=== PATIENT | female | born 1970 | race Caucasian/White ===

== ENCOUNTER 2018-01-14 00:16 | Inpatient (IN) | payer BC ==
[~2018-01-14] VITALS: Ht 165.1 cm; Wt 80.7 kg
[2018-01-14 00:16] VITALS: BP_SYST 133
[2018-01-14] MEDS ORDERED: NACL 0.9% 1,000 ML IV ONE (00:54)
[2018-01-14 01:23] LABS: ANION GAP 8 (5-15); CALCIUM 8.7 mg/dL (8.4-11.0); CHLORIDE 99 mmol/L (98-107); GLUCOSE 110 mg/dL (70-99); SODIUM SERUM 139 mmol/L (136-145); UREA NITROGEN, BLOOD 6 mg/dL (8-21)
[2018-01-14 01:27] LABS: ALANINE AMINOTRANSFERASE 24 U/L (12-78); ALBUMIN 3.4 g/dL (3.4-4.8); ASPARTATE AMINOTRANSFERASE 20 U/L (10-37); TOTAL BILIRUBIN 0.2 mg/dL (0.0-1.0)
[2018-01-14 01:28] LABS: HEMATOCRIT 29.1 % (36-48); HEMOGLOBIN 9.2 g/dL (12.0-16.0); MEAN CORPUSCULAR HEMOGLOBIN 23 pg (27-31); MEAN CORPUSCULAR HGB CONC 32 % (32-36); MEAN CORPUSCULAR VOLUME 74 fL (79.0-98.0); PLATELET COUNT (AUTO) 326 K/uL (130-430); RED BLOOD CELL COUNT(AUTO) 3.94 MIL/uL (4.2-6.2); RED CELL DISTRIBUTION WIDTH 17.7 % (9.0-15.0); WHITE BLOOD COUNT (AUTO) 4.9 K/uL (4.8-10.8)
[2018-01-14 01:30] LABS: GFR AFRICAN AMERICAN 116 mL/min (>90)
[2018-01-14 01:31] LABS: ALCOHOL, BLOOD < 3 mg/dL (<10)
[2018-01-14 01:35] LABS: POTASSIUM 2.4 mmol/L (3.5-5.1)
[2018-01-14] MEDS ORDERED: KCL 20 mEq in 100 mL (PREMIX) 100 ML IV ONE (02:15)
[2018-01-14] MEDS ORDERED: POTASSIUM CHLORIDE 20 MEQ TAB.PRT.SR PO ONE (02:15)
[2018-01-14 02:24] LABS: BASOPHILS % (MANUAL) 0 % (0-2); EOSINOPHILS % (MANUAL) 2 % (0-7); LYMPHOCYTES % (MANUAL) 32 % (20-46); MONOCYTES % (MANUAL) 4 % (0-11)
[2018-01-14] MEDS ORDERED: DIPHENHYDRAMINE INJ 50 MG/ML VIAL IVP ONE (03:15)
[2018-01-14] MEDS ORDERED: KETOROLAC TROMETHAMINE 15 MG VIAL IVP ONE (03:15)
[2018-01-14] MEDS ORDERED: MORPHINE 2 MG/ML INJ. SYRINGE IVP ONE (03:15)
[2018-01-14] MEDS ORDERED: GABA800T PO (03:17)
[2018-01-14] MEDS ORDERED: ZOLP10TA2 PO (03:17)
[2018-01-14] MEDS ORDERED: POTA-118 PO (03:17)
[2018-01-14] MEDS ORDERED: ALPR1TAB2 PO (03:17)
[2018-01-14 03:25] LABS: BILIRUBIN,URINE NEGATIVE (NEGATIVE); BLOOD, URINE NEGATIVE (NEGATIVE); CLARITY/URINE CLEAR (CLEAR); COLOR,URINE YELLOW (YELLOW); GLUCOSE,URINE NEGATIVE (NEGATIVE); KETONES,URINE NEGATIVE (NEGATIVE); LEUKOCYTE ESTERASE ,URINE NEGATIVE (NEGATIVE); NITRITE, URINE NEGATIVE (NEGATIVE); PH,URINE 5.5 (5.0-8.0); PROTEIN URINE NEGATIVE (NEGATIVE); UROBILINOGEN,URINE 0.2 (0.2-1.0)
[2018-01-14 03:52] LABS: BARBITURATE, URINE NEGATIVE (NEG <=200); BENZODIAZEPINE, URINE NEGATIVE (NEG <=150); CANNABINOID, URINE NEGATIVE (NEG <=50); COCAINE, URINE NEGATIVE (NEG <=150); METHAMPHETAMINES SCREEN,URINE NEGATIVE (NEG <=500); OPIATE, URINE NEGATIVE (NEG <=100); PHENCYCLIDINE SCREEN,URINE NEGATIVE (NEG <=25); UR TRICYCLIC ANTIDEPRESSANTS POSITIVE (NEG <=300); URINE AMPHETAMINE NEGATIVE (NEG <=500); URINE METHADONE NEGATIVE (NEG <=200); URINE OXYCODONE SCREEN NEGATIVE (NEG <=100); URINE PROPOXYPHENE SCREEN NEGATIVE (NEG <=300)
[2018-01-14] MEDS ORDERED: LORazepam 2 MG/ML VIAL IVP PRN (04:00)
[2018-01-14 04:24] VITALS: BP_SYST 92
[2018-01-14 07:52] VITALS: BP_SYST 122
[2018-01-14] MEDS: POTASSIUM CHLORIDE 20 MEQ TAB.PRT.SR PO SCH ×5 (07:53→23:28)
[2018-01-14] MEDS: KETOROLAC TROMETHAMINE 15 MG VIAL IVP PRN (09:26)
[2018-01-14 11:30] LABS: CALCIUM 8.5 mg/dL (8.4-11.0); CREATININE 0.68 mg/dL (0.55-1.30); POTASSIUM 3.6 mmol/L (3.5-5.1)
[2018-01-14 12:57] VITALS: BP_SYST 110
[2018-01-14] MEDS: MORPHINE 4 MG/ML INJ. SYRINGE IVP PRN (13:42)
[2018-01-14 16:12] VITALS: BP_SYST 122
[2018-01-14] MEDS ORDERED: HALOPERIDOL 5 MG TABLET (HALDOL) PO ONE (17:00)
[2018-01-14] MEDS: DIPHENHYDRAMINE INJ 50 MG/ML VIAL IM PRN (17:05)
[2018-01-14 20:15] VITALS: BP_SYST 127
[2018-01-15 00:07] VITALS: BP_SYST 115
[2018-01-15 04:57] LABS: CALCIUM 8.3 mg/dL (8.4-11.0); CREATININE 0.61 mg/dL (0.55-1.30); POTASSIUM 3.9 mmol/L (3.5-5.1)
[2018-01-15 05:13] LABS: BASOPHILS % (AUTO) 0.7 % (0.0-2.0); EOSINOPHILS # (AUTO) 0.1 K/uL (0.0-0.4); EOSINOPHILS % (AUTO) 2.6 % (0.0-4.0); LYMPHOCYTES # (AUTO) 2.3 K/uL (1.0-5.5); MEAN CORPUSCULAR HEMOGLOBIN 23 pg (27-31); MEAN CORPUSCULAR HGB CONC 31 % (32-36); MEAN CORPUSCULAR VOLUME 74 fL (79.0-98.0); MONOCYTES # (AUTO) 0.4 K/uL (0.0-1.0); MONOCYTES % (AUTO) 10.1 % (1.7-9.3); NEUTROPHILS # (AUTO) 1.6 K/uL (1.8-7.7); NEUTROPHILS % (AUTO) 36.6 % (40.0-70.0); PLATELET COUNT (AUTO) 324 K/uL (130-430); RED BLOOD CELL COUNT(AUTO) 3.92 MIL/uL (4.2-6.2); RED CELL DISTRIBUTION WIDTH 17.9 % (9.0-15.0); WHITE BLOOD COUNT (AUTO) 4.4 K/uL (4.8-10.8)
[2018-01-15 08:20] VITALS: BP_SYST 115
[2018-01-15] MEDS: HALOPERIDOL 5 MG TABLET (HALDOL) PO SCH ×2 (09:52→21:25)
[2018-01-15] MEDS: DIPHENHYDRAMINE INJ 50 MG/ML VIAL IM PRN (09:52)
[2018-01-15 17:25] VITALS: BP_SYST 137
[2018-01-15] MEDS ORDERED: CYANOCOBALAMIN 1000 MCG/ML VIAL IM ONE (18:00)
[2018-01-15] MEDS ORDERED: SOD FERRIC GLUC COMPLEX/SUC 125 MG in NS 100 ML IV ONE (18:15)
[2018-01-15 19:56] VITALS: BP_SYST 122
[2018-01-15] MEDS: MORPHINE 4 MG/ML INJ. SYRINGE IVP PRN (21:57)
[2018-01-16 00:01] VITALS: BP_SYST 112
[2018-01-16 07:55] VITALS: BP_SYST 136
[2018-01-16] MEDS: HALOPERIDOL 5 MG TABLET (HALDOL) PO SCH (08:08)
[2018-01-16] MEDS ORDERED: SOD FERRIC GLUC COMPLEX/SUC 125 MG in NS 100 ML IV ONE (09:00)
[2018-01-16 11:56] VITALS: BP_SYST 137
[2018-01-16] MEDS: KETOROLAC TROMETHAMINE 15 MG VIAL IVP PRN (15:31)
[2018-01-16 15:52] VITALS: BP_SYST 123
[2018-01-16 17:33] VITALS: BP_SYST 123
== END 2018-01-16 18:30 | disposition home or self-care (01) | DRG 312 ==
LOC: SED 00:16 → STU 03:59 → SMU 01-15 14:09
PROVIDERS: ADMIT Internal Medicine; ATTEND Internal Medicine
DX: R55 Syncope and collapse (principal); F13.20 Sedative, hypnotic or anxiolytic dependence, uncomplicated; F33.2 Major depressive disorder, recurrent severe without psychotic features; F41.9 Anxiety disorder, unspecified; R27.0 Ataxia, unspecified; D50.9 Iron deficiency anemia, unspecified; S00.03XA Contusion of scalp, initial encounter; F11.10 Opioid abuse, uncomplicated; F17.200 Nicotine dependence, unspecified, uncomplicated; M79.7 Fibromyalgia; E87.6 Hypokalemia; W18.39XA Other fall on same level, initial encounter; T50.905A Adverse effect of unspecified drugs, medicaments and biological substances, initial encounter; Z88.5 Allergy status to narcotic agent; Z79.899 Other long term (current) drug therapy; Y93.89 Activity, other specified; Y99.8 Other external cause status; Y92.89 Other specified places as the place of occurrence of the external cause; Z98.84 Bariatric surgery status; Z84.89 Family history of other specified conditions; Z98.891 History of uterine scar from previous surgery
CPT/HCPCS: 36415; 70450-TC; 80048; 80053; 80307; 81003; 83735-TC; 85007; 85025; 85027; 87081; 93005; 96365; 96375; 97110-GP; 97116-GP; 97530-GP; 99285; G0482; J1200; J1885; J2060; J2270; J2916; J3420; J3480